=== PATIENT | female | born 1945 | race Caucasian/White ===

== ENCOUNTER 2021-06-11 09:11 | Emergency (ER) | payer MEDICARE, OTHER ==
[~2021-06-11] VITALS: Ht 152.4 cm; Wt 95.3 kg
--- NOTE | ~2021-06-11 | EMS ---
[address] [place] [address] EMS Patient Care Report Name: ANN-MARIE RHOADES Room: [facility]#: [id number] Admission: 06/11/21 Attend Phys: Discharge: Date of : 47 Report #: [id number] THIS REPORT FOR: //name// Report Transmitted: 06/11/2021 09:09 EMS Care Summary [facility] Incident [id number] @ 06/11/2021 08:14 Incident Location [address] [place] [address] Dr [place], [place] [address] Patient ANN-MARIE RHOADES Female, 75 Years 1945 Patient Address [address] [place] [address] [place] [address] Patient History Hypertension (HTN), Patient Allergies No known allergies, Patient Medications Losartan, Chief Complaint Foot Pain Disposition Transported No Lights/[place] Dispatch Reason No Other Appropriate Choice Transported To [facility] Narrative 75 y/o female pt found sitting in bed upon EMS arrival. Pt was alert and oriented with a GCS of 15. Pt states that she has been having right foot pain since yesterday. She states that she has not injured her foot or fallen. She states that she had a steroid injection in that foot several months ago to help [address] [place] [address] EMS Patient Care Report Name: ANN-MARIE RHOADES Room: [facility]#: [id number] Admission: 06/11/21 Attend Phys: Discharge: Date of : 47 Report #: [id number] with pain and inflammation. Pt states that she is unable to bear weight on that foot due to pain. She denies any history of CHF and there was no swelling present in any other extremities. Pulse, motor and sensation is in tact. Pt was moved to [facility] and placed in ambulance, where initial vitals were assessed. Pt states that she would just liek to be transported to get an x-ray and pain medication. She was continuously monitored and reassessed with no further complaints or changes in condition. Care was transferred to RN at [facility]. Initial Vitals @08:35P: 65,R: 12,BP: 151/92,Pain: 8/10,GCS: 15,SpO2: 95,Revised Trauma: 12, @09:01P: 94,R: 14,BP: 144/107,Pain: 8/10,GCS: 15,SpO2: 95,Revised Trauma: 12, Impression Extremity Pain Timeline 08:14,Call Received 08:14,Dispatched 08:17,En Route 08:26,Initial Responder On Scene 08:26,On Scene 08:27,At Patient 08:35,BP: 151/92 M,PULSE: 65,RR: 12 R,SPO2: 95 Ox,ETCO2: ,BG: ,PAIN: 8,GCS: 15, 08:42,Depart Scene 09:01,BP: 144/107 M,PULSE: 94,RR: 14 R,SPO2: 95 Ox,ETCO2: ,BG: ,PAIN: 8,GCS: 15, 09:06,At Destination 09:09,Transfer Patient 09:37,Call Closed 09:37,In District Disclaimer v1.1 Copyright 2020 [employer] This EMS Care Summary contains data elements from the applicable legal record (which may be displayed differently). It is designed to provide pertinent information for the following purposes: continuity of care, clinical quality, and state data reporting. The complete legal record is available to ED staff and administrators of the receiving hospital in [employer] Patient Tracker. All data is provided "as is."
[2021-06-11 09:30] LABS: ABSOLUTE EOSINOPHILS 0.1 thou/uL (0.0-0.7); ABSOLUTE LYMPHOCYTES 0.8 thou/uL (0.8-5.3); ABSOLUTE MONOCYTES 0.4 thou/uL (0.0-1.2); ABSOLUTE NEUTROPHILS 4.8 thou/uL (1.6-8.1); BASOPHILS 0.4 %; EOSINOPHILS 1.1 %; HEMATOCRIT 43.5 % (37.0-47.0); HEMOGLOBIN 15.3 gm/dL (12.0-15.0); LYMPHOCYTES 13.5 %; MCH 32.4 pg (26.0-34.0); MCHC 35.1 g/dL (28.0-37.0); MCV 92.3 fL (80.0-100.0); MONOCYTES 6.7 %; MPV 8.9 fl. (7.2-11.1); NUCLEATED RBCS 0 /100WBC; PLATELET COUNT* 182 thou/uL (150-400); POLYS 78.3 %; RBC 4.71 mil/uL (4.20-5.00); RDW-CV 13.1 % (10.5-14.5); WBC 6.2 thou/uL (4.0-11.0)
[2021-06-11] MEDS ORDERED: LOSARTAN POTAS100 MG PO (09:30)
[2021-06-11] MEDS ORDERED: ZIAC 10-6.25 M1 EACH (09:30)
[2021-06-11 09:36] LABS: CALCIUM 8.7 mg/dL (8.5-10.1); CREATININE 0.9 mg/dL (0.6-1.3); POTASSIUM 3.8 mmol/L (3.5-5.1)
[2021-06-11] MEDS ORDERED: HYDROCODON-ACE1 EAC7 PO (09:44)
[2021-06-11] MEDS ORDERED: PREDNISONE 20 M20 M1 PO (09:44)
[2021-06-11 09:46] LABS: ALBUMIN 3.6 g/dL (3.4-5.0); TOTAL BILIRUBIN 0.4 mg/dL (<0.1-1.0); URIC ACID* 5.6 mg/dL (2.6-7.2)
[2021-06-11 10:37] VITALS: BP 174/88
== END 2021-06-11 10:37 | disposition home or self-care (01) ==
LOC: M.ERS 09:11
PROVIDERS: Family Medicine
DX: M10.071 Idiopathic gout, right ankle and foot (principal); Z90.49 Acquired absence of other specified parts of digestive tract; Z79.899 Other long term (current) drug therapy